=== PATIENT | female | born 1940 | race Caucasian/White ===

== ENCOUNTER 2017-12-02 18:57 | Emergency (ER) | payer OTHER ==
[~2017-12-02] VITALS: Ht 157.5 cm; Wt 58.1 kg
[2017-12-02] MEDS ORDERED: TRADJENTA5 MG PO (19:47)
[2017-12-02] MEDS ORDERED: GLIPIZIDE10 MG PO (19:47)
[2017-12-02] MEDS ORDERED: HORIZANT600 MG PO (19:47)
[2017-12-02] MEDS ORDERED: FORTAMET1000 MG PO (19:47)
[2017-12-02] MEDS ORDERED: PRAVASTATIN SOD20 MG PO (19:48)
[2017-12-02] MEDS ORDERED: ENALAPRIL MALEAT5 MG PO (19:48)
[2017-12-02] MEDS ORDERED: SERTRALINE HCL50 MG PO (19:48)
[2017-12-02] MEDS ORDERED: BUSPIRONE HCL10 MG PO (19:49)
[2017-12-02] MEDS ORDERED: TRAVATAN Z5 ML (19:49)
[2017-12-02] MEDS ORDERED: MELOXICAM15 MG PO (19:49)
[2017-12-02] MEDS ORDERED: RIVASTIGMINE1 EAC1 TD (19:50)
[2017-12-03] MEDS ORDERED: ZOFRAN ODT4 MG PO (02:51)
[2017-12-03] MEDS ORDERED: LEVSIN/SL0.125 MG SL (02:51)
[2017-12-03] MEDS ORDERED: PEPCID40 MG PO (02:51)
== END 2017-12-03 02:51 | disposition home or self-care (01) ==
LOC: ER 18:57
DX: M94.0 Chondrocostal junction syndrome [Tietze] (principal); K29.70 Gastritis, unspecified, without bleeding

== ENCOUNTER 2021-11-19 17:50 | Inpatient (IN) | payer OTHER ==
[~2021-11-19] VITALS: Ht 157.5 cm; Wt 50.8 kg
[~2021-11-19 17:50] MED LIST: BUSPIRONE HCL10 MG PO; ENALAPRIL MALEAT5 MG PO; FORTAMET1000 MG PO; GLIPIZIDE10 MG PO; HORIZANT600 MG PO; LEVSIN/SL0.125 MG SL; MELOXICAM15 MG PO; PEPCID40 MG PO; PRAVASTATIN SOD20 MG PO; RIVASTIGMINE1 EAC1 TD; SERTRALINE HCL50 MG PO; TRADJENTA5 MG PO; TRAVATAN Z5 ML; ZOFRAN ODT4 MG PO
== END 2021-12-04 13:16 | disposition home or self-care (01) | DRG 690 ==
LOC: ER 17:50 → MEDI 11-20 00:33
PROVIDERS: ADMIT Internal Medicine; ATTEND Internal Medicine
PROC: 07DR3ZX Extraction of Iliac Bone Marrow, Percutaneous Approach, Diagnostic (ICD-10-PCS; principal; 2021-11-28)
DX: N39.0 Urinary tract infection, site not specified (principal); L03.113 Cellulitis of right upper limb; E44.0 Moderate protein-calorie malnutrition; D72.828 Other elevated white blood cell count; D50.8 Other iron deficiency anemias; D53.8 Other specified nutritional anemias; I11.9 Hypertensive heart disease without heart failure; I25.10 Atherosclerotic heart disease of native coronary artery without angina pectoris; E11.9 Type 2 diabetes mellitus without complications; G30.8 Other Alzheimer's disease; F02.80 Dementia in other diseases classified elsewhere, unspecified severity, without behavioral disturbance, psychotic disturbance, mood disturbance, and anxiety; Z74.01 Bed confinement status; Z79.84 Long term (current) use of oral hypoglycemic drugs

== ENCOUNTER 2021-12-13 08:56 | Emergency (ER) | payer OTHER ==
[~2021-12-13] VITALS: Ht 157.5 cm; Wt 50.8 kg
[2021-12-13] MEDS ORDERED: ZETIA10 MG PO (09:14)
[2021-12-13] MEDS ORDERED: GLUMETZA500 MG (09:15)
[2021-12-13] MEDS ORDERED: ECOTRIN81 MG PO (09:17)
[2021-12-13] MEDS ORDERED: NAMENDA5 MG PO (09:17)
== END 2021-12-13 14:50 | disposition home or self-care (01) ==
LOC: ER 08:56
DX: I87.2 Venous insufficiency (chronic) (peripheral) (principal); N39.0 Urinary tract infection, site not specified; Z88.0 Allergy status to penicillin; E11.9 Type 2 diabetes mellitus without complications; Z79.84 Long term (current) use of oral hypoglycemic drugs

== ENCOUNTER 2022-01-06 20:53 | Emergency (ER) | payer OTHER ==
[~2022-01-06] VITALS: Ht 170.2 cm; Wt 51.3 kg
[~2022-01-06 20:53] MED LIST changes: +ECOTRIN81 MG PO; +GLUMETZA500 MG; +NAMENDA5 MG PO; +ZETIA10 MG PO
[2022-01-06] MEDS ORDERED: MELATONIN3 M3 (21:10)
[2022-01-06] MEDS ORDERED: VISTARIL25 MG PO (23:16)
== END 2022-01-06 23:17 | disposition home or self-care (01) ==
LOC: ER 20:53
DX: F19.929 Other psychoactive substance use, unspecified with intoxication, unspecified (principal); E11.9 Type 2 diabetes mellitus without complications; Z79.84 Long term (current) use of oral hypoglycemic drugs; Z88.0 Allergy status to penicillin

== ENCOUNTER 2022-05-17 18:29 | Emergency (ER) | payer OTHER ==
[~2022-05-17] VITALS: Ht 157.5 cm; Wt 51.3 kg
[~2022-05-17 18:29] MED LIST changes: +MELATONIN3 M3; +VISTARIL25 MG PO
[2022-05-17] MEDS ORDERED: DIVALPROEX SOD500 M1 PO (18:50)
[2022-05-17] MEDS ORDERED: ALPHAGAN P5 M2 OP (18:51)
[2022-05-17] MEDS ORDERED: LUMIGAN2.5 M1 OP (18:51)
[2022-05-17] MEDS ORDERED: RIVASTIGMINE1 EAC1 TD (18:51)
== END 2022-05-17 21:40 | disposition home or self-care (01) ==
LOC: ER 18:29
DX: S00.03XA Contusion of scalp, initial encounter (principal); W07.XXXA Fall from chair, initial encounter; Y93.9 Activity, unspecified; Y92.019 Unspecified place in single-family (private) house as the place of occurrence of the external cause; G30.9 Alzheimer's disease, unspecified; F02.80 Dementia in other diseases classified elsewhere, unspecified severity, without behavioral disturbance, psychotic disturbance, mood disturbance, and anxiety; Z88.0 Allergy status to penicillin; I11.0 Hypertensive heart disease with heart failure; I50.9 Heart failure, unspecified; M85.88 Other specified disorders of bone density and structure, other site

== ENCOUNTER 2023-04-17 11:15 | Emergency (ER) | payer OTHER ==
[~2023-04-17] VITALS: Ht 157.5 cm; Wt 49.9 kg
[~2023-04-17 11:15] MED LIST changes: +ALPHAGAN P5 M2 OP; +DIVALPROEX SOD500 M1 PO; +LUMIGAN2.5 M1 OP
== END 2023-04-17 23:21 | disposition home or self-care (01) ==
LOC: ER 11:15
DX: S00.93XA Contusion of unspecified part of head, initial encounter (principal); S40.011A Contusion of right shoulder, initial encounter; S70.01XA Contusion of right hip, initial encounter; W05.0XXA Fall from non-moving wheelchair, initial encounter; Y93.9 Activity, unspecified; Y92.9 Unspecified place or not applicable; Y99.9 Unspecified external cause status
CPT/HCPCS: 72040; 73020; 73501; 96365; 99284; J7030